=== PATIENT | male | born 1950 | race Caucasian/White ===

== ENCOUNTER → 2019-12-31 | Outpatient (CLI) | payer MEDICARE, BC ==
--- NOTE | 2019-12-31 12:59 | RAD ---
EXAM: Carotid Doppler sonogram. HISTORY: Syncope. TECHNIQUE: Oliva scale and color Doppler sonographic evaluation of the neck with spectral waveform analysis was performed and static images are submitted for review. FINDINGS: The peak systolic velocity within the right common carotid artery is 117 cm/sec. The peak systolic velocity within the right internal carotid artery is 67 cm/sec and the end diastolic velocity within the right internal carotid artery is 27 cm/sec. The right ICA/CCA ratio is 0.7. The peak systolic velocity within the left common carotid artery is 120 cm/sec. The peak systolic velocity within the left internal carotid artery is 61 cm/sec and the end diastolic velocity within the left internal carotid artery is 25 cm/sec. The left ICA/CCA ratio is 0.6. There is normal antegrade flow within both vertebral arteries. IMPRESSION: No Doppler evidence of hemodynamically significant stenosis. PQRS Compliance Statement - Stenosis calculations for CT, MR and conventional angiography are based upon measurement of the distal ICA diameter in accordance with the NASCET methodology. Stenosis calculations for carotid ultrasound studies are derived from validated velocity criteria which are known to correlate with the NASCET methodology. Electronically signed by: Sarah Castellanos MD (12/31/2019 12:56 PM) [email or web address]
== END ==
LOC: US 10:06
PROVIDERS: ATTEND Specialist
DX: R55 Syncope and collapse (principal)
CPT/HCPCS: 93880